=== PATIENT | female | born 1980 | race Two or more races ===

== ENCOUNTER → 2020-01-20 | Outpatient (CLI) | payer OTHER ==
[~2020-01-20] VITALS: Ht 167.6 cm; Wt 59.0 kg
[~2020-01-20] MED LIST: SINCALIDE 1.18 MCG in IV NORMAL SALINE 50ML 30 ML IV ONE
--- NOTE | 2020-01-20 11:14 | RAD ---
Examination: Hepatobiliary Scan: History: Right upper quadrant pain. Technique: 5.5 mCi technetium 99m Choletec was administered intravenously and spot views were obtained on the gamma camera for a Nuclear Medicine hepatobiliary scan. 1.2 mcg of CCK drip was administered over 30 minutes and the region of interest was drawn around the gallbladder and gallbladder ejection fraction was calculated. Findings: There is rapid uptake of activity from the blood pool and concentration in the liver. Activity seen in the gallbladder and small bowel. There is a rapid response of the gallbladder to CCK and the gallbladder ejection fraction is 98 % which is normal. Impression: Normal hepatobiliary scan. Normal gallbladder function. Electronically signed by: Levon Madrid MD (01/20/2020 11:11 AM) [id number]
== END ==
LOC: NM 08:20
PROVIDERS: ATTEND Internal Medicine Gastroenterology
DX: R10.11 Right upper quadrant pain (principal)
CPT/HCPCS: 78227; A9537; J2805

== ENCOUNTER → 2020-03-13 | Outpatient (CLI) | payer OTHER | LOC: LAB 08:35 | PROVIDERS: ATTEND Nurse Anesthetist, Certified Registered | DX: Z01.812 Encounter for preprocedural laboratory examination (principal); R10.11 Right upper quadrant pain; Z20.828 Contact with and (suspected) exposure to other viral communicable diseases | CPT/HCPCS: C9803; U0003 ==

== ENCOUNTER → 2020-03-17 | Day surgery (SDC) | payer OTHER ==
[~2020-03-17] MED LIST changes: +IPRATRPIUM/ALBUTEROL 0.5/2.5MG 3 ML NEBU. NEB PRN; +IV RINGERS SOLUTION,LACTATED 1,000 ML IV SCH; +LIDOCAINE 2% PF 5 ML VIAL. ONE; +MIDAZOLAM HCL PF 2 MG/2 ML VIAL. IV ONE; +ONDANSETRON PF 4 MG/2 ML VIAL. IV PRN; +PROPOFOL 10,000 MCG/ML (20ML) VIAL IV ONE; -SINCALIDE 1.18 MCG in IV NORMAL SALINE 50ML 30 ML IV ONE
[2020-03-17 10:53] VITALS: BP 101/69
--- NOTE | 2020-03-20 14:34 | PATHOLOGY ---
[facility] Accession Number: [id number] . 01 Material submitted: . stomach - ANTRUM R/O H. PYLORI . 01 Clinician provided ICD-10: R10.11 . 01 Clinical history: . RUQ PAIN . 02 Diagnosis: Gastric biopsies, antrum: - Chronic gastritis, mild. LBQ 03/20/2020 0936 Local . 02 Comment: Sections of the gastric antral biopsy show congestion and mild chronic inflammation. A properly controlled immunoperoxidase stain for Helicobacter is negative for Helicobacter organisms. (JPM/db; 03/20/2020) . Special stain performed: Immunoperoxidase stain for Helicobacter on A1 . 02 Electronically signed: . Victor M Joseph MD, Pathologist NPI- [id number] . 01 Gross description: . The specimen is received in formalin, labeled "Mukes, [place], antrum" and consists of 2 fragments of pink-limon tissue measuring 0.4 x 0.3 cm and 0.7 x 0.3 cm which are entirely submitted in A1. (SDY; 03/19/2020) SYU/SYU 03/19/2020 1709 Local . 02 Pathologist provided ICD-10: K29.50 . 02 CPT . 185140, [id number] Specimen Comment: A courtesy copy of this report has been sent to [phone], [phone] Specimen Comment: [id number] Specimen Comment: Report sent to / DR BOB Performed at: 01 [facility] [address], [place] [id number] MD Erik Burleson MD Phone: [phone] Performed at: 02 [facility] [address], [place] [id number] MD Victor M Joseph MD Phone: [phone]
== END | disposition home or self-care (01) ==
LOC: SURG 08:44
PROVIDERS: ATTEND Internal Medicine Gastroenterology
DX: R10.11 Right upper quadrant pain (principal); K29.50 Unspecified chronic gastritis without bleeding; Z72.89 Other problems related to lifestyle; Z98.890 Other specified postprocedural states; Z79.899 Other long term (current) drug therapy
CPT/HCPCS: 43239; J2001; J2704; J7120